=== PATIENT | female | born 1980 | race Caucasian/White ===

== ENCOUNTER 2016-11-07 16:07 | Emergency (ER) | payer SELFPAY ==
[2016-11-07 16:10] VITALS: BP 150/95; BMI 32.5
--- NOTE | 2016-11-07 17:11 | DR.GENAD ---
HPI - PCP Primary Care Physician: NFD - HPI Comment HPI Comment: PATIENT IS WEAK. SLIGHT HEADACHE REPORTED. NO FEVER OR DYSURIA. - Complaint/Symptoms Chief Complaint Doctors Comments: DIZZY, SHAKY, RAPID HEART RATE AND WEAK WITH NAUSEA AND VOMITED. THIS STARTED AFTER DRINKING LOTS OF ENERGY DRINK. Chief Complaint:: PT. 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 - Nurses notes reviewed Nurses Notes Review: Yes - Source History Provided: Patient - Mode of Arrival Mode of Arrival: Ambulatory - Timing Onset of Chief Complaint: 11/07/16 Came on: Suddenly - Duration Duration: Constant Duration: Hours - Severity Severity: Moderate PMH - PMH Past Medical History: No Past Surgical History: Yes Surgical History: Hysterectomy, Other Past Surgical History Comment: CLEFT LIP REPAIR, CYST REMOVED FROM CHIN - Family History History of Family Medical Conditions: Yes Family Medical History: Diabetes Mellitus, Cancer, CA, Coronary Artery Disease, Hypertension - Social History Does patient currently use any type of tobacco product: Yes Have you used tobacco products in the last 12 months: Yes Type of Tobacco Use: Cigarettes How many years tobacco product used: 15 Does any household member use tobacco: No Alcohol Use: None Lives With: Significant Other Lives Where: Home - infectious screening In the last 2 months have you had wt loss of >10#?: NO Have you had fever, night sweats or hemotysis?: No Have you traveled outside the country in the last 6 months?: No Isolation: Standard ROS - Review of Systems Constitutional: No Symptoms Reported Eyes: No Symptoms Reported ENTM: No Symptoms Reported Respiratoy: No Symptoms Reported Cardiovascular: No Symptoms Reported Gastrointestinal/Abdominal: Nausea Genitourinary: No Symptoms Reported Neurological: Headache, Weakness, Dizziness Musculoskeletal: No Symptoms Reported Integumentary: No Symptoms Reported Hematologic/Lymphatic: No Symptoms Reported Endocrine: No Symptoms Reported All Other Systems: Reviewed and Negative PE - Vital Signs Vitals: Temperature 98.1 F Pulse Rate 74 Respiratory Rate 17 Blood Pressure 150/95 O2 Sat by Pulse Oximetry 95 - General Limitations: No Limitations General Appearance: Alert - Head Head Exam: Normal Inspection - Eyes Eye exam: Normal Appearance - ENT ENT Exam: Normal External Ear Exam External Ear Exam: Normal External Inspection TM/Canal Exam: Bilateral Normal Nose Exam: Normal Nose Exam Mouth Exam: Normal Inspection Throat Exam: Normal Inspection - Neck Neck Exam: Trachea Midline. negative: Tenderness, Meningismus, Lymphadenopathy - Chest Chest Inspection: Symmetric Chest Wall Rise - Respiratory Respiratory Exam: Normal Lung Sounds Bilat Respiratory Exam: Bilateral Clear to Auscultation - Cardiovascular Cardiovascular Exam: Regular Rate, Normal Rhythm, Normal Heart Sounds - Abdominal Exam Abdominal Exam: Normal Bowel Sounds, Soft. negative: Tenderness - Extremities Extremities Exam: Normal Inspection - Back Back Exam: Normal Inspection - Neurologic Neurological Exam: Alert, Oriented X3, CN II-XII Intact, Normal Gait, Reflexes Normal. negative: Motor Sensory Deficit - Psychiatric Psychiatric Exam: Anxious - Skin Skin Exam: Normal Color MDM - Differential Diagnosis Differential Diagnosis: DIZZINESS, WEAKNESS, NEASEA, VERTIGO Course - Treatment Treatment: SEE ORDERS - Reevaluation 1st: Improved (WITH IV FLUID AND NAUSEAz MED.) - Education/Counseling Education/Counseling: Patient, Education Educated On: Treatment, Diagnosis, Needs for Follow Up ROR - Labs Reviewed Laboratory Results Reviewed?: Yes Result Diagrams: 11/07/16 17:45 11/07/16 17:45 Laboratory: WBC 10.9 X10^3/uL (3.6-10.0) H 11/07/16 17:45 RBC 4.75 X10^6/uL (3.5-5.4) 11/07/16 17:45 Hgb 14.5 g/dL (12.0-16.0) 11/07/16 17:45 Hct 41.4 % (36.0-47.0) 11/07/16 17:45 MCV 87.1 fL (80.0-100.0) 11/07/16 17:45 MCH 30.5 pg (27.0-34.0) 11/07/16 17:45 MCHC 35.0 g/dL (33.0-35.0) 11/07/16 17:45 RDW 12.1 % (11.6-16.5) 11/07/16 17:45 Plt Count 201 X10^3/uL (150.0-450.0) 11/07/16 17:45 MPV 9.6 fL (7.4-11.0) 11/07/16 17:45 Neut % 76.5 % (42.0-75.0) H 11/07/16 17:45 Lymph % 16.5 % (21.0-51.0) L 11/07/16 17:45 Toole % 5.4 % (0.0-13.0) 11/07/16 17:45 Eos % 1.0 % (0.9-2.9) 11/07/16 17:45 Baso % 0.6 % (0.2-1.0) 11/07/16 17:45 Neut # 8.3 x10^3/uL (2.2-4.8) H 11/07/16 17:45 Lymph # 1.8 X10^3/uL (1.3-2.9) 11/07/16 17:45 Toole # 0.6 x10^3/uL (0.3-0.8) 11/07/16 17:45 Eos # 0.1 x10^3/uL (0.0-0.2) 11/07/16 17:45 Baso # 0.1 X10^3/uL (0.0-0.1) 11/07/16 17:45 Absolute Nucleated RBC 0.0 /100WBC 11/07/16 17:45 Sodium 141 mmol/L (136-145) 11/07/16 17:45 Corrected Sodium TNP 11/07/16 17:45 Potassium 3.6 mmol/L (3.5-5.1) 11/07/16 17:45 Chloride 105 mmol/L (98-107) 11/07/16 17:45 Carbon Dioxide 27.8 mmol/L (21-32) 11/07/16 17:45 BUN 12 mg/dL (7-18) 11/07/16 17:45 Creatinine 0.71 mg/dL (0.55-1.02) 11/07/16 17:45 Est GFR (MDRD) Af Amer > 60 (>60) 11/07/16 17:45 Est GFR (MDRD) Non-Af > 60 (>60) 11/07/16 17:45 Glucose 103 mg/dL (65-99) H 11/07/16 17:45 Calcium 9.3 mg/dL (8.5-10.1) 11/07/16 17:45 Corrected Calcium TNP 11/07/16 17:45 Total Bilirubin 0.30 mg/dL (0.2-1.0) 11/07/16 17:45 AST 23 Units/L (15-37) 11/07/16 17:45 ALT 29 Units/L (12-78) 11/07/16 17:45 Alkaline Phosphatase 85 Units/L (46-116) 11/07/16 17:45 Creatine Kinase 117 Units/L (26-192) 11/07/16 17:45 CK-MB (CK-2) 1.4 ng/mL (0-4.0) 11/07/16 17:45 CK/CKMB % Calc 1.2 % (<4) 11/07/16 17:45 Troponin I < 0.02 ng/mL (0-1.5) 11/07/16 17:45 Total Protein 8.2 g/dL (6.4-8.2) 11/07/16 17:45 Albumin 4.0 g/dL (3.4-5.0) 11/07/16 17:45 Globulin 4.2 g/dL (2.5-4.5) 11/07/16 17:45 Albumin/Globulin Ratio 1.0 Ratio (1.1-2.1) L 11/07/16 17:45 Specimen Type Clean catch urine 11/07/16 18:16 Urine Color Yellow (YELLOW) 11/07/16 18:16 Urine Appearance Clear (CLEAR) 11/07/16 18:16 Urine pH 8.0 (5.0 - 8.0) 11/07/16 18:16 Ur Specific Warren 1.015 (1.000-1.030) 11/07/16 18:16 Urine Protein Negative (NEGATIVE) 11/07/16 18:16 Urine Glucose (UA) Negative (NEGATIVE) 11/07/16 18:16 Urine Ketones Negative (NEGATIVE) 11/07/16 18:16 Urine Occult Blood Negative (NEGATIVE) 11/07/16 18:16 Urine Nitrite Negative (NEGATIVE) 11/07/16 18:16 Urine Bilirubin Negative (NEGATIVE) 11/07/16 18:16 Urine Urobilinogen Normal (NORMAL) 11/07/16 18:16 Ur Leukocyte Esterase Negative (NEGATIVE) 11/07/16 18:16 Urine RBC None seen /HPF (NEGATIVE) 11/07/16 18:16 Urine WBC 0-1 /HPF (NEGATIVE) 11/07/16 18:16 Ur Squamous Epith Cells Rare /HPF (NEGATIVE) 11/07/16 18:16 Urine Bacteria Trace /HPF (NEGATIVE) 11/07/16 18:16 Ur Culture Indicated? No/not indicated 11/07/16 18:16 Urine Opiates Screen Negative (NEG=<300) 11/07/16 18:16 Urine Methadone Screen Negative (NEG=<300) 11/07/16 18:16 Ur Barbiturates Screen Negative (NEG=<200) 11/07/16 18:16 Ur Phencyclidine Scrn Negative (NEG=<25) 11/07/16 18:16 Ur Amphetamines Screen Negative (NEG=<1000) 11/07/16 18:16 U Benzodiazepines Scrn Negative (NEG=<200) 11/07/16 18:16 Urine Cocaine Screen Negative (NEG=<300) 11/07/16 18:16 U Marijuana (THC) Screen Positive (NEG=<50) A 11/07/16 18:16 - XRAY XRAY Interpreted by: Radiologist XRAY Findings: REPORT DISCUSS WITH PATIENT. - EKG Rhythm: NSR (EKG NOTED) - Diagnosis Discharge Problem: Weakness, Dizziness - Discharge Plan Disposition: 01 HOME, SELF-CARE Condition: Stable Prescriptions: Ondansetron HCl [Zofran Tab 4 mg] 4 mg PO Q8H PRN #12 tab PRN Reason: Nausea/Vomiting - Follow ups/Referrals Follow ups/Referrals: NFD,None [Primary Care Provider] - 3 days - Instructions Instructions: Dizziness, [id number], Weakness, [id number] Additional Instructions: RETURN TO ED IF WORSE.
[2016-11-07] MEDS ORDERED: NS 1000 ML 1,000 ML IV ONE (17:35)
[2016-11-07] MEDS ORDERED: ZOFRAN INJ 4 MG VIAL IVP ONE (17:35)
[2016-11-07] MEDS ORDERED: ZOFRAN INJ 4 MG VIAL ONE (17:53)
[2016-11-07] MEDS ORDERED: NS 1000 ML 1,000 ML ONE (17:53)
--- NOTE | 2016-11-07 18:01 | RAD ---
HISTORY: Weakness and dizziness. Single-view of the chest. Comparison: None. Findings: The trachea is midline. The cardiac silhouette is unremarkable. The lungs are hyperinflated with i ncreased perihilar interstitial opacities and associated bronchial cuffing; findings which can be se en with mild viral bronchitis of the tracheobronchial tree versus small airways disease. Please maylin elate. However, there is no lobar pneumonia or pulmonary mass. The lungs are otherwise clear without focal infiltrate or pleural effusion. The bony thorax is unremarkable. IMPRESSION: Radiographic findings of small airways disease, as above. Reported By:
[2016-11-07 18:04] LABS: BASOPHILS # (AUTO) 0.1 X10^3/uL (0.0-0.1); BASOPHILS % (AUTO) 0.6 % (0.2-1.0); EOSINOPHILS # (AUTO) 0.1 x10^3/uL (0.0-0.2); HEMATOCRIT 41.4 % (36.0-47.0); HEMOGLOBIN 14.5 g/dL (12.0-16.0); LYMPHOCYTES # (AUTO) 1.8 X10^3/uL (1.3-2.9); LYMPHOCYTES % (AUTO) 16.5 % (21.0-51.0); MEAN CORPUSCULAR HEMOGLOBIN 30.5 pg (27.0-34.0); MEAN CORPUSCULAR VOLUME 87.1 fL (80.0-100.0); MEAN PLATELET VOLUME 9.6 fL (7.4-11.0); MONOCYTES # (AUTO) 0.6 x10^3/uL (0.3-0.8); MONOCYTES % (AUTO) 5.4 % (0.0-13.0); NEUTROPHILS # (AUTO) 8.3 x10^3/uL (2.2-4.8); NEUTROPHILS % (AUTO) 76.5 % (42.0-75.0); PLATELET COUNT 201 X10^3/uL (150.0-450.0); RED BLOOD COUNT 4.75 X10^6/uL (3.5-5.4); RED CELL DISTRIBUTION WIDTH 12.1 % (11.6-16.5); WHITE BLOOD COUNT 10.9 X10^3/uL (3.6-10.0)
[2016-11-07 18:18] LABS: BLOOD UREA NITROGEN 12 mg/dL (7-18); CALCIUM 9.3 mg/dL (8.5-10.1); CARBON DIOXIDE 27.8 mmol/L (21-32); CHLORIDE 105 mmol/L (98-107); CREATININE 0.71 mg/dL (0.55-1.02); GLUCOSE 103 mg/dL (65-99); SODIUM 141 mmol/L (136-145); TROPONIN I < 0.02 ng/mL (0-1.5); eGFR BLACK RACES > 60 (>60); eGFR NON BLACK RACES > 60 (>60)
[2016-11-07 18:23] LABS: ALANINE AMINOTRANSFERASE 29 Units/L (12-78); ALKALINE PHOSPHATASE 85 Units/L (46-116); ASPARTATE AMINO TRANSFERASE 23 Units/L (15-37); CKMB % 1.2 % (<4); CREATINE KINASE 117 Units/L (26-192); CREATINE KINASE MB 1.4 ng/mL (0-4.0); TOTAL PROTEIN 8.2 g/dL (6.4-8.2)
[2016-11-07 18:34] LABS: BILIRUBIN,URINE NEGATIVE (NEGATIVE); BLOOD/HEMOGLOBIN,URINE NEGATIVE (NEGATIVE); GLUCOSE, URINE NEGATIVE (NEGATIVE); KETONES,URINE NEGATIVE (NEGATIVE); LEUKOCYTE ESTERASE ,URINE NEGATIVE (NEGATIVE); NITRITES,URINE NEGATIVE (NEGATIVE); PROTEIN,URINE NEGATIVE (NEGATIVE); UROBILINOGEN,URINE NORMAL (NORMAL)
[2016-11-07 18:42] LABS: APPEARANCE,URINE CLEAR (CLEAR); BACTERIA,URINE TRACE /HPF (NEGATIVE); COLOR,URINE YELLOW (YELLOW); RBC,URINE NONE SEEN /HPF (NEGATIVE); SQUAMOUS EPITHELIAL CELL,UR RARE /HPF (NEGATIVE)
== END 2016-11-07 19:43 | disposition home or self-care (01) ==
LOC: ER 16:15
DX: R53.1 Weakness (principal); R42 Dizziness and giddiness
CPT/HCPCS: 36415; 71010; 80053; 80307; 81001; 82550; 82553; 84484; 85025; 93005; 93010; 96365; 96374; 96375; 99283; A4222; G0434; J2405